=== PATIENT | male | born 1980 | race African-American/Black ===

== ENCOUNTER 2021-11-02 11:10 | Emergency (ER) | payer OTHER ==
[~2021-11-02] VITALS: Ht 172.7 cm; Wt 81.6 kg
[2021-11-02 11:11] VITALS: BP 149/111
--- NOTE | 2021-11-02 11:17 | NUR ---
PT AMB TO BED 6.
--- NOTE | 2021-11-02 11:30 | NUR ---
41YR OLD MALE C/O CP X1WEEK. /10 PAIN PRESSURE. DENIES SOB. PT A&OX4. SKIN WARM AND DRY. 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 SP02 98% RA . HOB ELEVATED. RESP EVEN AND UNLABORED. NO DISTRESS NOTED. NKDA NO MED HX
[2021-11-02 12:29] LABS: BASOPHILS % (AUTO) 0.6 % (0.0-2.0); EOSINOPHILS # (AUTO) 0.1 K/uL (0-0.4); EOSINOPHILS % (AUTO) 1.6 % (0.0-4.0); HEMATOCRIT 42.8 % (36-52); HEMOGLOBIN 14.5 g/dL (12.0-18.0); LYMPHOCYTES # (AUTO) 1.2 K/uL (2.0-11.5); LYMPHOCYTES % (AUTO) 26.2 % (20.5-51.1); MEAN CORPUSCULAR HEMOGLOBIN 33 pg (27-31); MEAN CORPUSCULAR HGB CONC 34 g/dL (33-37); MEAN CORPUSCULAR VOLUME 97.2 fL (80-94); MONOCYTES # (AUTO) 0.5 K/uL (0.8-1.0); MONOCYTES % (AUTO) 11.6 % (1.7-9.3); NEUTROPHILS # (AUTO) 2.8 K/uL (1.8-7.7); PLATELET COUNT (AUTO) 197 K/uL (140-450); RED BLOOD CELL COUNT(AUTO) 4.41 MIL/uL (4.20-6.10); RED CELL DISTRIBUTION WIDTH 12.7 % (11.6-13.7); WHITE BLOOD COUNT (AUTO) 4.6 K/uL (4.8-10.8)
[2021-11-02 12:44] LABS: ALBUMIN 4.1 g/dL (3.4-5.0); ANION GAP 14.7 (8-16); ASPARTATE AMINOTRANSFERASE 168 U/L (15-37); CARBON DIOXIDE 25.8 mmol/L (21-32); CHLORIDE 102 mmol/L (98-107); GFR ARICAN-AMERICAN 105 mL/min (>90); GLUCOSE 105 mg/dL (74-106); POTASSIUM 4.5 mmol/L (3.5-5.1); SODIUM SERUM 138 mmol/L (136-145); TOTAL BILIRUBIN 0.4 mg/dL (0.0-1.0); UREA NITROGEN, BLOOD 8 mg/dL (7-18)
[2021-11-02] MEDS ORDERED: IBUP-2213 PO (13:11)
[2021-11-02 13:20] VITALS: BP 154/97
--- NOTE | 2021-11-02 15:27 | NUR ---
Patient discharged with v/s stable. Written and verbal after care instructions given and explained. Patient verbalized understanding. Ambulatory with steady gait. All questions addressed prior to discharge. Advised to follow up with PMD.
--- NOTE | 2021-11-02 15:28 | NUR ---
Chart checked and completed. The patient's care was reviewed and supervised by Romy Dee RN.
== END 2021-11-02 13:20 | disposition home or self-care (01) ==
LOC: MED 11:10
DX: R07.9 Chest pain, unspecified (principal); Z79.899 Other long term (current) drug therapy
CPT/HCPCS: 36415; 71045; 80053; 84484; 85025; 85379; 93005; 99285